=== PATIENT | female | born 1985 | race Two or more races ===

== ENCOUNTER 2019-06-08 22:51 | Emergency (ER) | payer OTHER ==
[~2019-06-08] VITALS: Ht 162.6 cm; Wt 54.4 kg
[2019-06-08] MEDS ORDERED: ZOFRAN4 MG (23:33)
[2019-06-08] MEDS ORDERED: PROTONIX40 M1 (23:33)
[2019-06-08] MEDS ORDERED: DICLEGIS DR 101 EACH (23:34)
[2019-06-08] MEDS ORDERED: ZANTAC300 MG (23:34)
[2019-06-09] MEDS ORDERED: PROMETRIUM200 MG PO (07:35)
== END 2019-06-09 08:08 | disposition home or self-care (01) ==
LOC: ER 22:51
DX: O20.0 Threatened abortion (principal)

== ENCOUNTER 2019-12-29 12:45 | Inpatient (IN) | payer OTHER ==
[~2019-12-29] VITALS: Ht 162.6 cm; Wt 3.2 kg
[~2019-12-29 12:45] MED LIST: DICLEGIS DR 101 EACH; PROMETRIUM200 MG PO; PROTONIX40 M1; ZANTAC300 MG; ZOFRAN4 MG
[2020-01-09] MEDS ORDERED: DOCUSATE SODIU100 MG PO (14:22)
[2020-01-09] MEDS ORDERED: PERCOCET 5-3251 EACH PO (14:22)
[2020-01-09] MEDS ORDERED: MAXFE CAPLET1 EACH PO (14:22)
== END 2020-01-09 16:04 | disposition home or self-care (01) | DRG 788 ==
LOC: SURH 12:45 → LDR 01-05 17:30 → OB/GYN 01-07 02:39
PROVIDERS: ADMIT Obstetrics & Gynecology
PROC: 10D00Z1 Extraction of Products of Conception, Low, Open Approach (ICD-10-PCS; principal; 2020-01-05)
PROC: 3E033VJ Introduction of Other Hormone into Peripheral Vein, Percutaneous Approach (ICD-10-PCS; 2020-01-05)
PROC: 10907ZC Drainage of Amniotic Fluid, Therapeutic from Products of Conception, Via Natural or Artificial Opening (ICD-10-PCS; 2020-01-05)
PROC: 4A1HXCZ Monitoring of Products of Conception, Cardiac Rate, External Approach (ICD-10-PCS; 2020-01-05)
DX: O82 Encounter for cesarean delivery without indication (principal); O61.0 Failed medical induction of labor; Z3A.40 40 weeks gestation of pregnancy; Z37.0 Single live birth

== ENCOUNTER 2020-12-16 06:30 | Day surgery (SDC) | payer OTHER ==
[~2020-12-16 06:30] MED LIST changes: +DOCUSATE SODIU100 MG PO; +MAXFE CAPLET1 EACH PO; +PERCOCET 5-3251 EACH PO; +TAMOXIFEN CITRA20 MG PO
== END 2020-12-16 23:45 | disposition home or self-care (01) ==
LOC: CIR.AMB 06:30
PROVIDERS: ATTEND Surgery
DX: D05.12 Intraductal carcinoma in situ of left breast (principal); D24.1 Benign neoplasm of right breast; C77.3 Secondary and unspecified malignant neoplasm of axilla and upper limb lymph nodes; Z20.828 Contact with and (suspected) exposure to other viral communicable diseases; Z90.13 Acquired absence of bilateral breasts and nipples